=== PATIENT | male | born 2000 | race Caucasian/White ===

== ENCOUNTER 2019-08-07 19:44 | Observation (INO) | payer SELFPAY ==
[~2019-08-07] VITALS: Ht 167.6 cm; Wt 87.9 kg
--- NOTE | 2019-08-07 20:14 | ED Fall/Injury ---
General Chief Complaint: Trauma-Non Activation Stated Complaint: FALL, NECK AND BACK PAIN Nursing Triage Note: PT PRESENTS TO THE ED VIA EMS AFTER WAKING UP IN THE SHOWER ON THE GROUND, HE USED [facility] TO CONTACT FAMILY WHO CALLED EMS. PT VERBALIZES EXTREME BACK PAIN WITH SOME PAIN IN HIS NECK. PT STATES HE HAS HAD BACK PROBLEMS SINCE THIS SUMMER, FEEELS LIKE HIS LEGS CAN SUDDNELY GET WEAK Source: patient Exam Limitations: no limitations History of Present Illness Date Seen by Provider: Aug 07, 2019 Time Seen by Provider: 19:55 Initial Comments This 18-year-old young man presents to the emergency room after having some sort of collapsed in his shower. He remembers being in the shower and then waking up on the floor. He has pain in his head, neck, chest, hips, pelvis. He also reports having an incident on Tuesday in which he had lower back pain and felt very weak in his legs. 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 It is uncertain if he had a syncopal episode that caused him to fall or if he fell and struck his head resulting in loss of consciousness. He is alert and oriented at this time. He arrives on a spine board and in a c-collar. Allergies and Home Medications Allergies Coded Allergies: No Allergy Information Available (Unverified , 08/07/19) Patient Home Medication List Home Medication List Reviewed: Yes Review of Systems Review of Systems Constitutional: no symptoms reported Eyes: No Symptoms Reported Ears, Nose, Mouth, Throat: no symptoms reported Respiratory: no symptoms reported Cardiovascular: see HPI Gastrointestinal: no symptoms reported Genitourinary: no symptoms reported Musculoskeletal: see HPI Skin: no symptoms reported Psychiatric/Neurological: See HPI Past Uqqpsxf-Btfozz-Ztlqor Hx Past Med/Social Hx: Reviewed Nursing Past Med/Soc Hx Patient Social History Alcohol Use: Denies Use Recreational Drug Use: No Smoking Status: Former Smoker Recent Foreign Travel: No Contact w/Someone Who Travel: No Physical Abuse: No Sexual Abuse: No Mistreated: No Fear: No Immunizations Up To Date Tetanus Booster (TDap): More than 5yrs PED Vaccines UTD: No Past Medical History Surgeries: Yes Tonsillectomy Respiratory: No Cardiac: No Neurological: No Genitourinary: No Gastrointestinal: No Musculoskeletal: No Endocrine: No HEENT: No Cancer: No Psychosocial: No Integumentary: No Blood Disorders: No Physical Exam Vital Signs Vital Signs - First Documented 08/07/19 19:44 Temp 36.8 Pulse 84 Resp 18 B/P (MAP) 130/75 O2 Delivery Room Air Capillary Refill : Height, Weight, BMI Height: '" Weight: lbs. oz. 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, no motor/sensory deficits, alert, oriented x 3 Skin: normal color, warm/dry Vibha Coma Score Best Eye Response: (4) Open Spontaneously Best Verbal Response: (5) Oriented Best Motor Response: (6) Obeys Commands Redkey Total: 15 Progress/Results/Core Measures Results/Orders Lab Results Laboratory Tests Test 08/07/19 17:48 08/07/19 21:58 Range/Units White Blood Count 8.1 4.3-11.0 10^3/uL Red Blood Count 5.01 4.35-5.85 10^6/uL Hemoglobin 15.9 13.3-17.7 G/DL Hematocrit 44 40-54 % Mean Corpuscular Volume 87 80-99 FL Mean Corpuscular Hemoglobin 32 25-34 PG Mean Corpuscular Hemoglobin Concent 37 H 32-36 G/DL Red Cell Distribution Width 12.3 10.0-14.5 % Platelet Count 217 130-400 10^3/uL Mean Platelet Volume 10.6 H 7.4-10.4 FL Neutrophils (%) (Auto) 64 42-75 % Lymphocytes (%) (Auto) 23 12-44 % Monocytes (%) (Auto) 12 0-12 % Eosinophils (%) (Auto) 1 0-10 % Basophils (%) (Auto) 0 0-10 % Neutrophils # (Auto) 5.2 1.8-7.8 X 10^3 Lymphocytes # (Auto) 1.8 1.0-4.0 X 10^3 Monocytes # (Auto) 1.0 0.0-1.0 X 10^3 Eosinophils # (Auto) 0.1 0.0-0.3 10^3/uL Basophils # (Auto) 0.0 0.0-0.1 10^3/uL Sodium Level 140 135-145 MMOL/L Potassium Level 3.7 3.6-5.0 MMOL/L Chloride Level 106 98-107 MMOL/L Carbon Dioxide Level 21 21-32 MMOL/L Anion Gap 13 5-14 MMOL/L Blood Urea Nitrogen 7 7-18 MG/DL Creatinine 0.98 0.60-1.30 MG/DL Estimat Glomerular Filtration Rate > 60 BUN/Creatinine Ratio 7 Glucose Level 92 70-105 MG/DL Calcium Level 10.0 8.5-10.1 MG/DL Corrected Calcium 8.5-10.1 MG/DL Magnesium Level 1.8 1.6-2.4 MG/DL Total Bilirubin 0.5 0.1-1.0 MG/DL Aspartate Amino Transf (AST/SGOT) 21 5-34 U/L Alanine Aminotransferase (ALT/SGPT) 30 0-55 U/L Alkaline Phosphatase 106 40-136 U/L Total Protein 7.8 6.4-8.2 GM/DL Albumin 4.6 H 3.2-4.5 GM/DL Serum Alcohol < 10 <10 MG/DL Urine Opiates Screen NEGATIVE NEGATIVE Urine Oxycodone Screen NEGATIVE NEGATIVE Urine Methadone Screen NEGATIVE NEGATIVE Urine Propoxyphene Screen NEGATIVE NEGATIVE Urine Barbiturates Screen NEGATIVE NEGATIVE Ur Tricyclic Antidepressants Screen NEGATIVE NEGATIVE Urine Phencyclidine Screen NEGATIVE NEGATIVE Urine Amphetamines Screen NEGATIVE NEGATIVE Urine Methamphetamines Screen NEGATIVE NEGATIVE Urine Benzodiazepines Screen NEGATIVE NEGATIVE Urine Cocaine Screen NEGATIVE NEGATIVE Urine Cannabinoids Screen NEGATIVE NEGATIVE My Orders Orders - BRYSON ANAYA MD Ct Head/Cervical Spine Wo (08/07/19 20:07) Ct Chest/Abdomen/Pelvis W (08/07/19 20:07) Alcohol (08/07/19 20:07) Cbc With Automated Diff (08/07/19 20:07) Comprehensive Metabolic Panel (08/07/19 20:07) Drug Screen Stat (Urine) (08/07/19 20:07) Magnesium (08/07/19 20:07) Ed Iv/Invasive Line Start (08/07/19 20:07) Ekg Tracing (08/07/19 20:07) Monitor-Rhythm Ecg Trace Only (08/07/19 20:07) Iohexol Injection (Omnipaque 350 Mg/Ml 1 (08/07/19 20:30) Received Contrast (Hold Metformin- Contr (08/07/19 20:30) Ns (Ivpb) (Sodium Chloride 0.9% Ivpb Bag (08/07/19 20:30) Fentanyl Injection (Sublimaze Injection (08/07/19 21:00) Fentanyl Injection (Sublimaze Injection (08/07/19 20:44) Fentanyl Injection (Sublimaze Injection (08/07/19 22:15) Medications Given in ED Current Medications Medications Dose Ordered Sig/Jemal Route Start Time Stop Time Status Last Admin Dose Admin Fentanyl Citrate 50 mcg ONCE ONCE IVP 08/07/19 21:00 08/07/19 21:01 DC 08/07/19 20:52 50 MCG Fentanyl Citrate 50 mcg ONCE ONCE IVP 08/07/19 22:15 08/07/19 22:16 DC 08/07/19 22:21 50 MCG Iohexol 100 ml ONCE ONCE IV 08/07/19 20:30 08/07/19 20:31 DC 08/07/19 20:31 100 ML Sodium Chloride 100 ml ONCE ONCE IV 08/07/19 20:30 08/07/19 20:31 DC 08/07/19 20:32 100 ML Vital Signs/I&O 08/07/19 19:44 Temp 36.8 Pulse 84 Resp 18 B/P (MAP) 130/75 O2 Delivery Room Air Progress Progress Note #1: Time: 20:11 Progress Note Patient was seen and examined. Maintaining C-spine precautions patient was rolled and spine board was removed. He was found to have tenderness in multiple areas including the chest, abdomen, hips, thoracic spine and lumbar spine. He also reported neck pain. CT scans are being obtained. Lab workup and EKG are also being obtained. Patient reported his pain as 9 out of 10 but declined medication. Progress Note #2: Time: 22:22 Progress Note Patient had no syncopal episodes while in the emergency room. Pain was treated with fentanyl. CT from head through pelvis was obtained. There was questionable thymic tissue versus hematoma in the substernal region. However, he denied pain or tenderness in this area on reexamination. There was also mention of a small amount of free fluid in the pelvis on the CT scan. This is abnormal in the mail. He had persistent mild tenderness in the pelvis on repeat examination. For this reason Dr. Mcfarland was consulted. We are uncertain if the patient fell and struck his head causing concussion with loss of consciousness or if he had a syncopal episode causing the fall. For the reasons described above, we will admit him for observation. Case was also discussed with Dr. Baxter. Patient is agreeable to admission. Initial ECG Impression Date: Aug 07, 2019 Initial ECG Impression Time: 20:04 Initial ECG Rate: 78 Comment Sinus arrhythmia with no ischemic ST elevation or depression. Juvenile- appearing pattern. No abnormal intervals or significant axis deviation. Diagnostic Imaging Diagonstic Imaging: CT Plain Films/CT/US/NM/MRI: c-spine, head Comments CT head and sees report reviewed. See report below: NAME: ERON PINEDA [facility] REC#: [id number] PT STATUS: ADM Jane : 2000 PHYSICIAN: BRYSON ANAYA MD ADMIT DATE: 08/07/19 Signed Date of Exam:08/07/19 CT HEAD/CERVICAL SPINE WO PROCEDURE: CT head and CT cervical spine without contrast, 08/07/2019. TECHNIQUE: Multiple contiguous axial images were obtained through the brain and cervical spine without the use of intravenous contrast. Sagittal and coronal reformations through the cervical spine were then performed. Auto Exposure Controls were utilized during the CT exam to meet ALARA standards for radiation dose reduction. INDICATION: Woke up in the shower on the ground, loss consciousness. Back pain, neck pain. FINDINGS: BRAIN: No hemorrhage or infarct. No mass, mass effect or midline shift. No hydrocephalus. The paranasal sinuses and mastoid air cells appear to be clear. IMPRESSION: No acute process CT CERVICAL SPINE: Alignment of the spine is preserved. No fracture or subluxation appreciated. The visualized lung apices grossly unremarkable IMPRESSION 1. No acute process within the cervical spine. Dictated by: Dictated on workstation # [id number] Dict: 08/07/192044 Trans: 08/07/198 [facility] [id number] Interpreted by: AARON AYALA MD Electronically signed by: AARON AYALA MD 08/07/19 2228 Diagonstic Imaging: CT Plain Films/CT/US/NM/MRI: chest, abdomen, pelvis Comments CT chest, abdomen and pelvis viewed by me and report reviewed. See report below: NAME: ERON PINEDA [facility] REC#: [id number] PT STATUS: ADM Jane : 2000 PHYSICIAN: BRYSON ANAYA MD ADMIT DATE: 08/07/19 Signed Date of Exam:08/07/19 CT CHEST/ABDOMEN/PELVIS W PROCEDURE: CT chest, abdomen, and pelvis with contrast. TECHNIQUE: Multiple contiguous axial images were obtained through the chest, abdomen, and pelvis after the administration of intravenous contrast. Auto Exposure Controls were utilized during the CT exam to meet ALARA standards for radiation dose reduction. INDICATION: Woke up in the shower on the ground. Neck pain, back pain, legs suddenly go weak EXAMINATION: CT chest, abdomen, and pelvis with contrast 08/07/2019 COMPARISONS: None FINDINGS: CHEST: There is focal density noted within the anterior mediastinum. Given patient's age, it is possible that this represents residual thymic tissue, hematoma given the history of recent injury difficult to completely exclude although felt to be less likely. The adjacent vessels appear intact. Correlate for any focal chest tenderness. The overlying sternum unremarkable. There is no pericardial effusion. No pneumothorax. Mild emphysematous change noted in the posterior left upper lung. Abdomen and pelvis: Liver demonstrates diffuse fatty infiltration but appears intact. The gallbladder normal. Spleen intact. Pancreas, adrenal glands normal. Kidneys unremarkable. No inflammatory change about the bowel loops. There is a minimal amount of free fluid seen within the pelvis nonspecific but atypical for a male. This could be a posttraumatic finding but no source is appreciated. Otherwise, no free fluid or air seen in the remaining abdomen or pelvis. The visualized osseous structures intact. IMPRESSION: 1. Increased density retrosternal space most likely residual thymic tissue, however, please see above description. 2. Minimal free fluid in the pelvis which is nonspecific but considered abnormal in a male. A source is not seen. Clinically correlate and follow-up as clinically warranted based on symptoms. Remaining visualized structures grossly unremarkable. If back pain persists, MRI could evaluate for edema along an occult abnormality. Dictated by: Dictated on workstation # [id number] Dict: 08/07/192055 Trans: 08/07/192227 [facility] [id number] Interpreted by: AARON AYALA MD Electronically signed by: AARON AYALA MD 08/07/192227 Departure Communication (Admissions) Time/Spoke to Admitting Phy: 22:15 Dr. Baxter Time/Spoke to Consulting Phy: 22:05 Dr. Mcfarland Impression Primary Impression: Fall in (into) shower or empty bathtub, initial encounter Additional Impressions: Loss of consciousness Lower back pain Qualified Codes: M54.5 - Low back pain Pelvic pain Disposition: ADMITTED INPATIENT Condition: Stable Admissions Decision to Admit Reason: Admit from ER (General) Decision to Admit/Date: Aug 07, 2019 Time/Decision to Admit Time: 22:00 Departure-Patient Inst. Referrals: NO,LOCAL PHYSICIAN (PCP/Family) Primary Care Physician BRYSON ANAYA MD Aug 07, 2019 20:14
[2019-08-07 20:15] LABS: BASOPHILS % (AUTO) 0 % (0-10); EOSINOPHILS # (AUTO) 0.1 10^3/uL (0.0-0.3); EOSINOPHILS % (AUTO) 1 % (0-10); HEMATOCRIT 44 % (40-54); HEMOGLOBIN 15.9 G/DL (13.3-17.7); LYMPHOCYTES # (AUTO) 1.8 X 10^3 (1.0-4.0); LYMPHOCYTES % (AUTO) 23 % (12-44); MEAN CORPUSCULAR HEMOGLOBIN 32 PG (25-34); MEAN CORPUSCULAR HGB CONC 37 G/DL (32-36); MEAN CORPUSCULAR VOLUME 87 FL (80-99); MEAN PLATELET VOLUME 10.6 FL (7.4-10.4); MONOCYTES % (AUTO) 12 % (0-12); NEUTROPHILS # (AUTO) 5.2 X 10^3 (1.8-7.8); NEUTROPHILS % (AUTO) 64 % (42-75); PLATELET COUNT 217 10^3/uL (130-400); RED CELL DISTRIBUTION WIDTH 12.3 % (10.0-14.5); WHITE BLOOD COUNT 8.1 10^3/uL (4.3-11.0)
[2019-08-07 20:26] LABS: ALANINE AMINOTRANSFERASE 30 U/L (0-55); ALBUMIN 4.6 GM/DL (3.2-4.5); ALKALINE PHOSPHATASE 106 U/L (40-136); BILIRUBIN,TOTAL 0.5 MG/DL (0.1-1.0); BUN/CREATININE RATIO 7; CARBON DIOXIDE 21 MMOL/L (21-32); CHLORIDE 106 MMOL/L (98-107); CREATININE SERUM 0.98 MG/DL (0.60-1.30); GFR ESTIMATED > 60; GLUCOSE 92 MG/DL (70-105); MAGNESIUM 1.8 MG/DL (1.6-2.4); POTASSIUM 3.7 MMOL/L (3.6-5.0); SODIUM 140 MMOL/L (135-145); TOTAL PROTEIN 7.8 GM/DL (6.4-8.2)
[2019-08-07] MEDS ORDERED: IOHEXOL 350 MG/ML 100 ML (OMNIPAQUE 350) VIAL IV ONE (20:30)
[2019-08-07] MEDS ORDERED: HOLD METFORMIN - RECEIVED CONTRAST 20 ML VIAL IV SCH (20:30)
[2019-08-07] MEDS ORDERED: NS 100 ML (IVPB) BAG IV ONE (20:30)
[2019-08-07] MEDS ORDERED: fentaNYL INJECTION 100 MCG/2 ML AMP ONE (20:44)
--- NOTE | 2019-08-07 20:56 | Diagnostic Imaging Report ---
PROCEDURE: CT head and CT cervical spine without contrast, 08/07/2019. TECHNIQUE: Multiple contiguous axial images were obtained through the brain and cervical spine without the use of intravenous contrast. Sagittal and coronal reformations through the cervical spine were then performed. Auto Exposure Controls were utilized during the CT exam to meet ALARA standards for radiation dose reduction. INDICATION: Woke up in the shower on the ground, loss consciousness. Back pain, neck pain. FINDINGS: BRAIN: No hemorrhage or infarct. No mass, mass effect or midline shift. No hydrocephalus. The paranasal sinuses and mastoid air cells appear to be clear. IMPRESSION: No acute process CT CERVICAL SPINE: Alignment of the spine is preserved. No fracture or subluxation appreciated. The visualized lung apices grossly unremarkable IMPRESSION 1. No acute process within the cervical spine. Dictated by: Dictated on workstation # [id number]
[2019-08-07] MEDS ORDERED: fentaNYL INJECTION 100 MCG/2 ML AMP IVP ONE ×2 (21:00→22:15)
--- NOTE | 2019-08-07 21:10 | NUR ---
ASSUMED CARE OF THIS PATIENT AT THIS TIME. INTRODUCED SELF INSTRUCTED PATIENT TO CALL FOR ANY ADDITIONAL NEEDS. PATIENT IS A&OX4 FAMILY ARE PRESENT IN ROOM ALL ACKOWLEDGE INSTRUCTIONS TO CALL FOR NEEDS. WILL CONTINUE TO MONITOR.
--- NOTE | 2019-08-07 21:10 | Diagnostic Imaging Report ---
PROCEDURE: CT chest, abdomen, and pelvis with contrast. TECHNIQUE: Multiple contiguous axial images were obtained through the chest, abdomen, and pelvis after the administration of intravenous contrast. Auto Exposure Controls were utilized during the CT exam to meet ALARA standards for radiation dose reduction. INDICATION: Woke up in the shower on the ground. Neck pain, back pain, legs suddenly go weak EXAMINATION: CT chest, abdomen, and pelvis with contrast 08/07/2019 COMPARISONS: None FINDINGS: CHEST: There is focal density noted within the anterior mediastinum. Given patient's age, it is possible that this represents residual thymic tissue, hematoma given the history of recent injury difficult to completely exclude although felt to be less likely. The adjacent vessels appear intact. Correlate for any focal chest tenderness. The overlying sternum unremarkable. There is no pericardial effusion. No pneumothorax. Mild emphysematous change noted in the posterior left upper lung. Abdomen and pelvis: Liver demonstrates diffuse fatty infiltration but appears intact. The gallbladder normal. Spleen intact. Pancreas, adrenal glands normal. Kidneys unremarkable. No inflammatory change about the bowel loops. There is a minimal amount of free fluid seen within the pelvis nonspecific but atypical for a male. This could be a posttraumatic finding but no source is appreciated. Otherwise, no free fluid or air seen in the remaining abdomen or pelvis. The visualized osseous structures intact. IMPRESSION: 1. Increased density retrosternal space most likely residual thymic tissue, however, please see above description. 2. Minimal free fluid in the pelvis which is nonspecific but considered abnormal in a male. A source is not seen. Clinically correlate and follow-up as clinically warranted based on symptoms. Remaining visualized structures grossly unremarkable. If back pain persists, MRI could evaluate for edema along an occult abnormality. Dictated by: Dictated on workstation # [id number]
[2019-08-07 22:15] LABS: AMPHETAMINE SCREEN, URINE NEGATIVE (NEGATIVE); BARBITURATE SCREEN URINE NEGATIVE (NEGATIVE); BENZODIAZEPINES SCREEN URINE NEGATIVE (NEGATIVE); CANNABINOID SCREEN, URINE NEGATIVE (NEGATIVE); COCAINE SCREEN URINE NEGATIVE (NEGATIVE); METHADONE STAT NEGATIVE (NEGATIVE); METHAMPHETAMINE SCREEN URINE S NEGATIVE (NEGATIVE); OPIATE SCREEN URINE NEGATIVE (NEGATIVE); OXYCODONE STAT NEGATIVE (NEGATIVE); PROPOXYPHENE STAT NEGATIVE (NEGATIVE); TRICYCLIC ANTIDEPRESSANTS SCRE NEGATIVE (NEGATIVE)
[2019-08-07 22:46] VITALS: BP 129/80
--- NOTE | 2019-08-07 22:50 | NUR ---
ERON PINEDA admitted to room 432-1, with an admitting diagnosis of fall in shower, loss os consciousness, and pelvic pain on 08/07/19 from ER via stretcher, accompanied by ER staff. ERON PINEDA introduced to surroundings, call light, bed controls, phone, TV, temperature control, lights, meal times, smoking policy, visitor policy, side rail policy, bathrooms and showers. Patient Rights given to patient in the handbook. ERON PINEDA verbalizes understanding that [facility] is not responsible for the loss or damage to any personal effects or valuables that are kept in the patients posession during their hospitalization. ERON PINEDA verbalizes understanding of Interdisciplinary Patient Education. Patient and/or family were informed about the Rapid Response Team and its purpose.
[2019-08-07] MEDS ORDERED: ONDANSETRON 4 MG/2 ML (SDV) Z0FRAN IV PRN (23:45)
[2019-08-08 00:30] VITALS: BP 145/82
[2019-08-08] MEDS: HYDROcodone/APAP 5 MG/325 MG (LORTAB) TAB PO PRN ×2 (00:44→06:45)
[2019-08-08 03:55] VITALS: BP 130/72
[2019-08-08 04:55] LABS: BASOPHILS % (AUTO) 0 % (0-10); EOSINOPHILS # (AUTO) 0.1 10^3/uL (0.0-0.3); EOSINOPHILS % (AUTO) 1 % (0-10); HEMATOCRIT 42 % (40-54); HEMOGLOBIN 14.5 G/DL (13.3-17.7); LYMPHOCYTES # (AUTO) 2.7 X 10^3 (1.0-4.0); LYMPHOCYTES % (AUTO) 28 % (12-44); MEAN CORPUSCULAR HEMOGLOBIN 31 PG (25-34); MEAN CORPUSCULAR HGB CONC 35 G/DL (32-36); MEAN CORPUSCULAR VOLUME 89 FL (80-99); MEAN PLATELET VOLUME 10.3 FL (7.4-10.4); MONOCYTES # (AUTO) 1.2 X 10^3 (0.0-1.0); MONOCYTES % (AUTO) 12 % (0-12); NEUTROPHILS # (AUTO) 5.5 X 10^3 (1.8-7.8); NEUTROPHILS % (AUTO) 58 % (42-75); PLATELET COUNT 212 10^3/uL (130-400); RED CELL DISTRIBUTION WIDTH 12.5 % (10.0-14.5); WHITE BLOOD COUNT 9.5 10^3/uL (4.3-11.0)
[2019-08-08 05:24] LABS: ALANINE AMINOTRANSFERASE 26 U/L (0-55); ALBUMIN 4.3 GM/DL (3.2-4.5); ALKALINE PHOSPHATASE 98 U/L (40-136); BILIRUBIN,TOTAL 0.8 MG/DL (0.1-1.0); BUN/CREATININE RATIO 6; CALCIUM 9.6 MG/DL (8.5-10.1); CARBON DIOXIDE 25 MMOL/L (21-32); CHLORIDE 105 MMOL/L (98-107); CREATININE SERUM 1.09 MG/DL (0.60-1.30); GFR ESTIMATED > 60; GLUCOSE 91 MG/DL (70-105); POTASSIUM 3.9 MMOL/L (3.6-5.0); SODIUM 140 MMOL/L (135-145)
--- NOTE | 2019-08-08 07:58 | Consultation - Surgery ---
GUS HERRERA,MED STUDENT 08/08/19 0758: History of Present Illness History of Present Illness Patient Consulted On(sydnie/time) 08/08/19 07:50 Date Seen by Provider: Aug 08, 2019 Time Seen by Provider: 07:41 History of Present Illness Surgery consult by Dr. Sheridan because patient had an episode of loss of consciousness, fell and hit his head Patient is a 18y/o male that presented to the ED last night after having an episode of LoC that resulted in him falling while in the shower. He says that he thinks that he hit his head when he fell. Patient denies having any episodes like or similar to this in the past. Currently patient's complains of dull ache low back pain and weakness in his lower extremities bilaterally since January. Pain is described as dull and is worse in the morning and improves slightly throughout the day and with NSAIDs. Patient denies dizziness, headache, lightheadedness, changes in vision or hearing, nausea, vomiting, incontinence, diarrhea, and constipation. Allergies and Home Medications Allergies Coded Allergies: No Allergy Information Available (Unverified , 08/07/19) Home Medications No Active Prescriptions or Reported Meds Past Naburqy-Otffxz-Amobis Hx Patient Social History Alcohol Use: Denies Use Recreational Drug Use: No Smoking Status: Former Smoker Type Used: Electronic/Vapor Recent Foreign Travel: No Contact w/Someone Who Travel: No Recent Infectious Disease Expo: No Immunizations Up To Date Tetanus Booster (TDap): More than 5yrs PED Vaccines UTD: No Surgeries History of Surgeries: Yes Surgeries: Tonsillectomy Respiratory History of Respiratory Disorde: No Cardiovascular History of Cardiac Disorders: No Neurological History of Neurological Disord: No Genitourinary History of Genitourinary Disor: No Gastrointestinal History of Gastrointestinal Di: No Musculoskeletal History of Musculoskeletal Dis: No Endocrine History of Endocrine Disorders: No HEENT History of HEENT Disorders: No Cancer History of Cancer: No Psychosocial History of Psychiatric Problem: No Integumentary History of Skin or Integumenta: No Blood Transfusions History of Blood Disorders: No Family Medical History Family Medial History: Diabetes mellitus 18 FATHER Seizure disorder Grandmother Review of Systems-General Constitutional: No chills, No dizziness, No fever; malaise, weakness EENTM: epistaxis, nose congestion; No blurred vision, No double vision, No eye pain, No vision loss, No mouth pain, No mouth swelling, No nose pain, No throat pain, No throat swelling Respiratory: No cough, No dyspnea on exertion, No hemoptysis, No orthopnea, No phlegm, No short of breath Cardiovascular: No chest pain, No edema; palpitations Gastrointestinal: No abdominal pain, No constipation, No diarrhea, No dysphagia, No hematemesis, No heartburn, No melena, No nausea, No vomiting (mild discomfort ) Genitourinary: No decreased output, No discharge, No dysuria, No frequency, No hematuria, No incontinence Musculoskeletal: back pain (constant since January ), muscle weakness (bilateral lower extremties ) Psychiatric/Neurological: Denies Numbness, Denies Tingling Physical Exam-General Problems Physical Exam Vital Signs Vital Signs - First Documented 08/07/19 08/07/19 19:44 22:35 Temp 36.8 Pulse 84 Resp 18 B/P (MAP) 130/75 Pulse Ox 95 O2 Delivery Room Air Capillary Refill : General Appearance: WD/WN, no apparent distress HEENT: PERRL/EOMI; No scleral icterus (R), No scleral icterus (L), No pale conjunctivae (R) Respiratory: chest non-tender, lungs clear, normal breath sounds, no respiratory distress, no accessory muscle use Cardiovascular: regular rate, rhythm, no edema, no murmur Peripheral Pulses: 2+ Dorsalis Pedis (R), 2+ Left Dors-Pedis (L), 2+ Radial Pulses (R), 2+ Radial Pulses (L) Gastrointestinal: soft, no organomegaly, no pulsatile mass, other ( mild discomfort to palpation ) Back: no vertebral tenderness, other (hypertonic lower back muscles bilaterally ) Extremities: no pedal edema, normal capillary refill, other (4/5 strength in LE bilaterally with senstation intact. 5/5 strength in UE with sensation intact ) Neurologic/Psychiatric: alert, normal mood/affect, oriented x 3 Data Review Labs Laboratory Tests 08/07/19 17:48: White Blood Count 8.1, Red Blood Count 5.01, Hemoglobin 15.9, Hematocrit 44, Mean Corpuscular Volume 87, Mean Corpuscular Hemoglobin 32, Mean Corpuscular Hemoglobin Concent 37H, Red Cell Distribution Width 12.3, Platelet Count 217, Mean Platelet Volume 10.6H, Neutrophils (%) (Auto) 64, Lymphocytes (%) (Auto) 2 3, Monocytes (%) (Auto) 12, Eosinophils (%) (Auto) 1, Basophils (%) (Auto) 0, Neutrophils # (Auto) 5.2, Lymphocytes # (Auto) 1.8, Monocytes # (Auto) 1.0, Eosinophils # (Auto) 0.1, Basophils # (Auto) 0.0, Sodium Level 140, Potassium Level 3.7, Chloride Level 106, Carbon Dioxide Level 21, Anion Gap 13, Blood Urea Nitrogen 7, Creatinine 0.98, Estimat Glomerular Filtration Rate > 60, B UN/Creatinine Ratio 7, Glucose Level 92, Calcium Level 10.0, Corrected Calcium , Magnesium Level 1.8, Total Bilirubin 0.5, Aspartate Amino Transf (AST/SGOT) 21, Alanine Aminotransferase (ALT/SGPT) 30, Alkaline Phosphatase 106, Total Protein 7.8, Albumin 4.6H, Serum Alcohol < 10 08/07/19 21:58: Urine Opiates Screen NEGATIVE, Urine Oxycodone Screen NEGATIVE, Urine Methadone Screen NEGATIVE, Urine Propoxyphene Screen NEGATIVE, Urine Barbiturates Screen NEGATIVE, Ur Tricyclic Antidepressants Screen NEGATIVE, Urine Phencyclidine Screen NEGATIVE, Urine Amphetamines Screen NEGATIVE, Urine Methamphetamines Screen NEGATIVE, Urine Benzodiazepines Screen NEGATIVE, Urine Cocaine Screen NEGATIVE, Urine Cannabinoids Screen NEGATIVE 08/08/19 04:25: White Blood Count 9.5, Red Blood Count 4.68, Hemoglobin 14.5, Hematocrit 42, Mean Corpuscular Volume 89, Mean Corpuscular Hemoglobin 31, Mean Corpuscular Hemoglobin Concent 35, Red Cell Distribution Width 12.5, Platelet Count 212, Mean Platelet Volume 10.3, Neutrophils (%) (Auto) 58, Lymphocytes (%) (Auto) 28, Monocytes (%) (Auto) 12, Eosinophils (%) (Auto) 1, Basophils (%) (Auto) 0, Neutrophils # (Auto) 5.5, Lymphocytes # (Auto) 2.7, Monocytes # (Auto) 1.2H, Eosinophils # (Auto) 0.1, Basophils # (Auto) 0.0, Sodium Level 140, Potassium Level 3.9, Chloride Level 105, Carbon Dioxide Level 25, Anion Gap 10, Blood Urea Nitrogen 7, Creatinine 1.09, Estimat Glomerular Filtration Rate > 60, BUN/Creatinine Ratio 6, Glucose Level 91, Calcium Level 9.6, Corrected Calcium 9.4, Total Bilirubin 0.8, Aspartate Amino Transf (AST/SGOT) 15, Alanine Aminotransferase (ALT/SGPT) 26, Alkaline Phosphatase 98, Total Protein 7.0, Albumin 4.3 Assessment/Plan Assessment/Plan Assessment/Plan Small air pouch in abdomen seen on CT, cause unknown at this time, - No surgical intervention planned at this time - Will continue to monitor Syncopal episode - recommend work up for syncope 4 month history constant low back pain and LE weakness: - low back pain work FHx of seizure disorder Clinical Quality Measures DVT/VTE Risk/Contraindication: Risk Factor Score Per Nursin RFS Level Per Nursing on Admit: 1=Low/No VTE PPX KIKO MCFARLAND DO 08/08/191945: History of Present Illness History of Present Illness History of Present Illness 18 year old male fall with LOC in shower. Thinks possibly hit his head. Paitent reports about 6 months of lower back pain. Pain is variable in intensity. Usually NSAIDs help his pain. Had some slight pain yesterday in back. Lower legs feel sometimes weak. Had some b/l lower abdominal pain. No radiation of pain. Pain has resolved this morning. Nothing seems to illicit pain, medications help. Tolerating liquids. Wanting more. Denies n/v fever sweats chills shortness of breath or chest pain. Allergies and Home Medications Allergies Coded Allergies: No Allergy Information Available (Unverified , 08/07/19) Home Medications No Active Prescriptions or Reported Meds Patient Home Medication List Home Medication List Reviewed: Yes Past Udkisnq-Qdfoow-Zfsddc Hx Patient Social History Alcohol Use: Occasionally Uses Smoking Status: Current Everyday Smoker Type Used: Electronic/Vapor Reviewed Nursing Assessment Reviewed/Agree w Nursing PMH: Yes Family Medical History Significant Family History: No Pertinent Family Hx Family Medial History: Diabetes mellitus 19 FATHER Seizure disorder Grandmother Review of Systems-General Constitutional: No chills; weakness EENTM: No blurred vision, No double vision Respiratory: No cough, No dyspnea on exertion Cardiovascular: No edema Gastrointestinal: No abdominal pain, No nausea, No vomiting Genitourinary: No decreased output, No discharge Musculoskeletal: back pain (constant since January ) Skin: no symptoms reported; No change in color, No change in hair/nails Psychiatric/Neurological: Denies Numbness, Denies Tingling Physical Exam-General Problems Physical Exam General Appearance: WD/WN, no apparent distress HEENT: PERRL/EOMI, normal ENT inspection Neck: non-tender, full range of motion, supple, normal inspection Respiratory: normal breath sounds, no respiratory distress, no accessory muscle use Cardiovascular: regular rate, rhythm Gastrointestinal: non tender, soft, no organomegaly, no pulsatile mass; No tenderness Rectal: deferred Back: other (hypertonic lower back muscles bilaterally minimal tenderness lower back) Extremities: normal range of motion, non-tender, no pedal edema, no calf tenderness Neurologic/Psychiatric: canteen manager II-XII nml as tested, no motor/sensory deficits, alert, normal mood/affect, oriented x 3 Skin: normal color, warm/dry Lymphatic: no adenopathy Assessment/Plan Assessment/Plan Assessment/Plan fall syncopal episode low back pain small amount of fluid in pelvis ct head and cspine no acute abnormality hte ct chest abd/pelvis demonstrates thymus tissues and small amount of fluid in pelvis, do not see any other acute abnormality in the pelvis and pain in abdomen improved at this time. do not feel this small amount of fluid is of any significance. low back pain is chronic - outpatient no acute findings diet as tolerates and if continues no pain could be discharged today no acute surgical needs any worsening of condition be seen at that time. Supervisory-Addendum Brief Verification & Attestation Participated in pt care: history, MDM, physical Personally performed: exam, history, MDM, supervision of care Care discussed with: Medical Student Procedures: n/a Results interpretation: Verified all documentation Verification and Attestation of Medical Student E/M Service A medical student performed and documented this service in my presence. I reviewed and verified all information documented by the medical student and made modifications to such information, when appropriate. I personally performed the physical exam and medical decision making. Kiko Mcfarland, Aug 08, 2019,19:51 GUS HERRERA,MED STUDENT Aug 08, 2019 07:58 KIKO MCFARLAND DO Aug 08, 2019 19:46
[2019-08-08 08:00] VITALS: BP 123/75
--- NOTE | 2019-08-08 13:11 | Short Stay Summary-Hospitalist ---
History of Present Illness HPI/Chief Complaint this is a 18-year-old white male who was admitted last night after having a syncopal episode in the Shower. The patient noted no antecedent symptoms. He denied having his heart race or dizziness or graying out of his vision. The patient at the time of my interview this morning has no complaints other than some mild bilateral lower abdominal discomfort. He has had about a 6 month history of lower back pain and complaints of leg weakness. All of the CT scans were reviewed with the mother and family. Source: patient, family Exam Limitations: no limitations Date Seen 08/08/19 Time Seen by a Provider: 13:00 Attending Physician Vivi Stark MD PCP No,Local Physician Referring Physician Date of Admission Aug 07, 2019 at 22:24 Home Medications & Allergies Home Medications Reviewed patient Home Medication Reconciliation performed by pharmacy medication reconciliations maintenance mechanic technician and/or nursing. Patients Allergies have been reviewed. Allergies Allergies Coded Allergies No Allergy Information Available (Unverified08/07/19) Past Pgerzsf-Pldajk-Vtofcq Hx Past Med/Social Hx: Reviewed Nursing Past Med/Soc Hx Patient Social History Marrital Status: single Employed/Student: student, full-time Alcohol Use: Denies Use Recreational Drug Use: No Smoking Status: Former Smoker Type Used: Electronic/Vapor Recent Foreign Travel: No Contact w/other who traveled: No Recent Infectious Disease Expo: No Immunizations Up To Date Tetanus Booster (TDap): More than 5yrs Pediatric: No Past Medical History Surgeries: Tonsillectomy Musculoskeletal: Chronic Back Pain Psychosocial: Anxiety History of Blood Disorders: No Family History Reviewed Nursing Family Hx Diabetes mellitus 19 FATHER Seizure disorder Grandmother Review of Systems Constitutional: see HPI EENTM: no symptoms reported Respiratory: no symptoms reported Cardiovascular: no symptoms reported Gastrointestinal: constipation, diarrhea, heartburn Genitourinary: no symptoms reported Musculoskeletal: back pain Skin: no symptoms reported Psychiatric/Neurological: No Symptoms Reported, Weakness (legs) Physical Exam Physical Exam Vital Signs Vital Signs - First Documented 08/07/19 08/07/19 19:44 22:35 Temp 36.8 Pulse 84 Resp 18 B/P (MAP) 130/75 Pulse Ox 95 O2 Delivery Room Air Capillary Refill : Less Than 3 Seconds Height, Weight, BMI Height: '" Weight: lbs. oz. kg; 31.29 BMI Method: General Appearance: No Apparent Distress, WD/WN HEENT: Normal ENT Inspection, Pharynx Normal Neck: Full Range of Motion, Normal Inspection, Non Tender, Supple Respiratory: Chest Non Tender, Lungs Clear, Normal Breath Sounds, No Accessory Muscle Use, No Respiratory Distress Cardiovascular: Regular Rate, Rhythm, No Edema, No Gallop, No JVD, No Murmur, Normal Peripheral Pulses Gastrointestinal: Normal Bowel Sounds, No Organomegaly, No Pulsatile Mass, Tenderness (subjective this bilateral lower abdomen) Rectal: Deferred Back: Normal Inspection, No CVA Tenderness, No Vertebral Tenderness Extremity: Normal Capillary Refill, Normal Inspection, Normal Range of Motion, Non Tender, No Calf Tenderness Neurologic/Psychiatric: Alert, Oriented x3, No Motor/Sensory Deficits, Normal M ood/Affect, it senior analyst II-XII Norm as Tested Results Results/Procedures Labs Laboratory Tests 08/07/19 17:48 08/08/19 04:25 Patient resulted labs reviewed. Imaging: Reviewed Imaging Report Procedures CT head and neck chest abdomen Short Stay Diagnosis Discharge Diagnosis-Short Stay Admission Diagnosis syncope Fatty liver Local emphysematous changes lungs Possible anxiety Final Discharge Diagnosis syncope Conclusion Plan patient has been stable without cardiac arrhythmias or any other symptoms overnight. Physical exam remains normal. Scans are discussed with the parents room. Will see the patient in follow-up at the [facility] consider outpatient PT for the low back pain counseling for anxiety depression and cessation of vaping. Have asked patient to decrease sweets and carbohydrates. Clinical Quality Measures DVT/VTE Risk/Contraindication: Risk Factor Score Per Nursin RFS Level Per Nursing on Admit: 1=Low/No VTE PPX Copy Copies To 1: VIVI STARK MD, KATHLEEN M MD Aug 08, 2019 13:11
[2019-08-08 13:50] VITALS: BP 123/75
--- NOTE | 2019-08-08 14:00 | NUR ---
Pt walked 500 feet with no complaints of dizziness or any assistive devices. This RN will continue to monitor until pt is discharged later this afternoon.
== END 2019-08-08 14:10 | disposition home or self-care (01) ==
LOC: ER 19:50 → 4TH 22:24
PROVIDERS: ADMIT Internal Medicine; ATTEND Internal Medicine
DX: R55 Syncope and collapse (principal); J98.4 Other disorders of lung; K76.0 Fatty (change of) liver, not elsewhere classified; R10.2 Pelvic and perineal pain; M54.5 Low back pain; W18.2XXA Fall in (into) shower or empty bathtub, initial encounter; Z83.3 Family history of diabetes mellitus
CPT/HCPCS: 36415; 70450; 71260; 72125; 74177; 80053; 80306; 80320; 83735; 85025; 93005; 93041; 96374; 96376; G0378